=== PATIENT | female | born 1995 | race Caucasian/White ===

== ENCOUNTER 2024-04-07 16:47 | Emergency (ER) | payer BC, OTHER ==
[~2024-04-07] VITALS: Ht 152.4 cm; Wt 49.9 kg
[2024-04-07 17:48] LABS: BASOPHILS # (AUTO) 0.1 K/UL (0.0-0.2); BASOPHILS % (AUTO) 0.7 % (0.0-2.0); EOSINOPHILS # (AUTO) 0.3 K/uL (0.0-0.7); EOSINOPHILS % (AUTO) 1.9 % (0.0-7.0); HEMATOCRIT 43.6 % (31.2-41.9); HEMOGLOBIN 14.7 g/dL (10.9-14.3); LYMPHOCYTES # (AUTO) 1.3 K/uL (0.8-4.8); LYMPHOCYTES % (AUTO) 7.7 % (20.5-51.5); MEAN CORPUSCULAR HEMOGLOBIN 28.9 uug (24.7-32.8); MEAN CORPUSCULAR HGB CONC 34 g/dL (32.3-35.6); MEAN CORPUSCULAR VOLUME 85.6 fL (75.5-95.3); MONOCYTES % (AUTO) 5.8 % (0.0-11.0); NEUTROPHILS # (AUTO) 14.4 K/uL (1.8-8.9); NEUTROPHILS % (AUTO) 83.9 % (38.5-71.5); PLATELET COUNT (AUTO) 265 K/uL (179-408); RED BLOOD CELL COUNT(AUTO) 5.09 MIL/uL (3.63-4.92); RED CELL DISTRIBUTION WIDTH 13.5 % (12.3-17.7); WHITE BLOOD COUNT (AUTO) 17.2 K/uL (3.8-11.8)
[2024-04-07 18:01] LABS: DIFFERENTIAL COMMENT 1
[2024-04-07 18:04] LABS: CALCIUM 9.5 mg/dL (8.5-10.1); CREATININE 0.9 mg/dL (0.6-1.3); POTASSIUM 3.8 mmol/L (3.5-5.1)
[2024-04-07 18:10] LABS: ALBUMIN 4.5 g/dL (3.4-5.0); BILIRUBIN,DIRECT 0.1 mg/dL (0.0-0.2); BILIRUBIN,TOTAL 0.4 mg/dL (0.2-1.0); TOTAL PROTEIN, SERUM 8.7 g/dL (6.4-8.2)
[2024-04-07 18:35] LABS: THYROID STIMULATING HORMONE 3.364 mIU/mL (0.358-3.740)
[2024-04-07] MEDS ORDERED: SWABABLE VALVE TRANSFER SET EA MC ONE (19:07)
[2024-04-07] MEDS ORDERED: IV NORMAL SALINE 250 ML IV ONE (19:07)
[2024-04-07] MEDS ORDERED: IOHEXOL 350 100 ML INFUS..BTL ONE (19:07)
[2024-04-07 19:13] LABS: MAGNESIUM 2.1 mg/dL (1.8-2.4)
[2024-04-08 02:30] VITALS: O2SAT 100
== END 2024-04-08 02:45 | disposition designated cancer center or children's hospital (05) ==
LOC: ER 16:47
DX: D72.0 Genetic anomalies of leukocytes (principal); R07.9 Chest pain, unspecified; R63.4 Abnormal weight loss; R11.0 Nausea; R53.1 Weakness
CPT/HCPCS: 36415; 71045; 82533; 83735; 84443; 85025; 85651; 87040; A4606; A4663; Q9967